=== PATIENT | male | born 1945 | race Caucasian/White ===

== ENCOUNTER 2019-06-04 07:02 | Outpatient (CLI) | payer MEDICARE, SELFPAY ==
--- NOTE | 2019-06-04 07:00 | XR_ITS ---
WS: [id number] KUB, 06/04/2019 Clinical Data: ureteral calculus Comparison: KUB, 11/14/2016. Findings: No abnormal intraabdominal masses or calcifications are seen. There is no dilatated small bowel or ev idence of obstruction. There is a levoscoliosis with degenerative disc disease at L4-L5. No definite renal or ureteral calcu li are seen. XR/XR KUB [id number] Impression: Negative KUB.
== END 2019-06-04 07:03 | disposition home or self-care (01) ==
LOC: RAD 07:06
PROVIDERS: Family Provider Nurse Practitioner Family; PCP Nurse Practitioner Family; Visit Provider Urology
DX: N20.1 Calculus of ureter (principal)
CPT/HCPCS: 74018; 81001

== ENCOUNTER 2019-06-17 08:00 | Outpatient (CLI) | payer MEDICARE, SELFPAY ==
[2019-06-17 08:52] LABS: Blood Urea Nitrogen 11 mg/dL (8-23)
--- NOTE | 2019-06-17 09:30 | CT_ITS ---
WS: [id number] CT ABDOMEN PELVIS TECHNIQUE: Noncontrast CT of the abdomen and contrast-enhanced CT of the abdomen and pelvis with stefan nal and sagittal reformatted images. CLINICAL INFORMATION: HISTORY OF KIDNEY STONES COMPARISON: October 07, 2016 DLP: 1891.[address] scans at [facility] use at least one of these dose optimization techniques: automat ed exposure control; mA and/or kV adjustment per patient size (includes targeted exams where dose is matched to clinical indication); or iterative reconstruction. FINDINGS: Stable hepatic cysts in the left greater than right hepatic lobes the largest measuring 2.2 CM. Lashell l portal vein and splenic vein. Normal spleen. Small splenule. Normal pancreas. Small esophageal hiat al hernia. Lung bases are well aerated. Subsegmental atelectasis right lung base. Adrenal glands are normal. Bilateral renal cysts. Largest renal cyst measures 5.7 x 5.5 cm upper pole right kidney. No o bstructing renal or ureteral calculi. Normal excretion on the delayed images. Both ureters appear nor mal. Tiny nonobstructing left calyceal tip calculus measuring 3 mm. Normal sigmoid colon. Sigmoid diverticulosis. Appendix is normal. Normal caliber abdominal aorta. No abdominal lymphadenopathy. Enlarged calcified prostate. Recommend correlation PSA. No pelvic sidewall or inguinal lymphadenopathy. Multilevel degenerative disc disease throughout the lumbar spine. CT/CT abdomen pelvis wo/w [id number] IMPRESSION: 1. Normal renal parenchymal enhancement. No hydronephrosis. 2. No obstructing renal or ureteral calculi. 3. Nonobstructing 3 mm left calyceal tip calculus. 4. Calcified enlarged prostate measuring 3.7 x 5.3 CM. Recommend correlation P SA. 5. Diverticulosis. No evidence of acute diverticulitis. 6. Bilateral hepatic and renal cysts. Largest renal cyst right upper pole lucita uring 5.5 x 5.7 CM. 7. Moderate esophageal hiatal hernia.
[2019-06-17] MEDS: iohexol 300 mg/mL 100 mL Btl IV (09:43)
--- NOTE | 2019-07-03 14:22 | DCPLANNER ---
Patient did attend appointment scheduled for 07.01.19 with [facility].
== END 2019-06-17 08:01 | disposition home or self-care (01) ==
LOC: RAD 08:04
PROVIDERS: Family Provider Nurse Practitioner Family; Visit Provider Urology
DX: N28.1 Cyst of kidney, acquired (principal); N40.0 Benign prostatic hyperplasia without lower urinary tract symptoms; K57.90 Diverticulosis of intestine, part unspecified, without perforation or abscess without bleeding; K76.89 Other specified diseases of liver; K44.9 Diaphragmatic hernia without obstruction or gangrene; Z87.442 Personal history of urinary calculi
CPT/HCPCS: 74178; 82565; 84520

== ENCOUNTER 2019-06-17 10:48 | Emergency (ER) | payer MEDICARE, SELFPAY ==
[2019-06-17 11:06] VITALS: BP 122/81; PULSE 95; RESP 16; TEMP 36.7; O2SAT 97; BMI 23.6
[2019-06-17 12:33] LABS: Basophils % 0.3 %; Eosinophils # 0.1 10^3/uL (0.0-0.8); Eosinophils % 0.5 %; Hematocrit 47.9 % (42.0-52.0); Hemoglobin 15.5 g/dL (11.7-16.6); Lymphocytes % 8.6 %; Mean Corpuscular HGB Conc 32.4 g/dL (30.0-36.0); Mean Corpuscular Hemoglobin 29.5 pg (28.0-34.0); Mean Corpuscular Volume 91.2 fL (80-94); Mean Platelet Volume 9.4 fL (7.4-10.4); Monocytes # 0.7 10^3/uL (0.2-0.9); Monocytes % 6.3 %; Neutrophils # 9.2 10^3/uL (1.8-7.7); Neutrophils % 82.5 %; Nucleated Red Blood Cells % 0 %; Platelet Count 264 10^3/cmm (130-400); Red Blood Count 5.25 10^6/uL (4.1-5.3); Red Cell Distribution Width 12.9 % (12.1-15.1); White Blood Count 11.1 10^3/uL (4.0-10.0)
[2019-06-17 12:39] LABS: Bilirubin Urine Neg (NEGATIVE); Blood Urine Neg (Negative); Glucose Urine UA Norm (Normal); Ketones Urine Negative (Negative); Leukocyte Esterase Urine Negative (Negative); Nitrate Urine Negative (Negative); Protein Urine Trace (Negative); Urine Appearance Clear (CLEAR); Urine Color Yellow (Yellow); Urobilinogen Urine Norm (Negative); pH Urine 5 (5-7)
[2019-06-17 12:46] LABS: Alanine Aminotransferase 25 U/L (0-41); Albumin Level 3.9 g/dL (3.5-5.2); Alkaline Phosphatase 113 IU/L (40-130); Anion Gap 16.7 (5-19); Aspartate Amino Transferase 23 U/L (0-40); Blood Urea Nitrogen 11 mg/dL (8-23); Calcium 9.8 mg/dL (8.5-10.5); Carbon Dioxide 27 mmol/L (22-29); Chloride 97 mmol/L (98-107); Globulin 3.8 g/dL (1.3-4.6); Glucose 112 mg/dL (65-115); Lipase 20 U/L (13-60); Potassium 4.7 mmol/L (3.5-5.1); Sodium 136 mmol/L (136-145); Total Bilirubin 0.5 mg/dL (0.15-1.2); Total Protein 7.7 g/dL (6.6-8.7)
[2019-06-17 12:50] LABS: Add Urine Culture? No; Bacteria Urine TRACE; RBC Urine 0-4 /hpf (0-2); Squamous Epithelial Cell Urine RARE (0-5); WBC Urine 0-4 /hpf (0-5)
--- NOTE | 2019-06-17 13:32 | ED_ITS ---
HPI - Abdominal Pain General: Chief Complaint: Abdominal Pain Stated Complaint: right side pain Time Seen by Provider: 06/17/19 13:27 Source: patient Mode of arrival: ambulatory Limitations: no limitations History of Present Illness: HPI narrative: Patient comes in today with complaints of right side abdominal pain on and off for the last 4 months. Patient has been seen by Dr. Lamb who is his urologist and has had a CT scan done today but was referred to the ER with no sign of renal problems was noted. Patient is concerned about the difficulty he is having with his pain. Patient denies constipation, fever, nausea or vomiting. Patient appears well. Patient appears in no pain at rest. Review of Systems General: Reports: 10 or more systems reviewed and unremarkable except in HPI and below GI: Reports: abdominal pain PFSH ED PFSH: Social History Smoking and tobacco status: never smoked Alcohol intake: current Alcohol intake frequency: 0-2 Drinks per Day Marital status: Current occupational status: employed History of recent travel: No Current gender identity: Male Physical Exam Const: COMMON NORMALS: no apparent distress and oriented x3 GENERAL APPEARANCE: cooperative HENMT: COMMON NORMALS: normocephalic, external ears normal, EAC's normal, TM's normal bilaterally and external nose normal HEAD & SCALP: normal to inspection and normocephalic FACE & SINUS: normal facial exam NOSE: external nose normal GENERAL EAR: hearing not grossly impaired EXTERNAL EAR: Yes external ears normal EXTERNAL AUDITORY CANAL: EAC's normal TYMPANIC MEMBRANE: TM's normal bilaterally MOUTH: oral and palatal mucosa normal THROAT: posterior oropharynx normal Eye: COMMON NORMALS: PERRL and EOMs intact bilaterally PUPIL: Yes PERRL Neck/C-Spine: COMMON NORMALS: full ROM and no lymphadenopathy Lymph: LYMPHATIC: no lymphedema noted Chest: COMMONS NORMALS: inspection of chest normal and palpation of chest normal Resp: COMMON NORMALS: normal respiratory effort and clear to auscultation bilaterally AUSCULTATION: clear to auscultation bilaterally Cardio: COMMON NORMALS: regular rate and regular rhythm RATE: regular rate RHYTHM: regular rhythm GI: COMMON NORMALS: normal to inspection, nondistended, normoactive bowel sounds PALPATION: Yes tender (right abd tenderness) : COMMON NORMALS: Yes no CVA tenderness BLADDER/KIDNEY EXAM: Yes no CVA tenderness Back/Pelvis: COMMON NORMALS: no CVA tenderness and thoracic and lumbar spine normal to inspection Extremity: COMMON NORMALS: normal to inspection GENERAL: No edema Neuro: COMMON NORMALS: oriented x3, moves all extremities and no focal motor deficits Psych: COMMON NORMALS: mental status grossly normal and cooperative Skin: COMMON NORMALS: no rashes or lesions noted GENERAL SKIN EXAM: no rashes or lesions noted Course Vital Signs: Vital signs: Vital Signs Temperature 97.7 F 06/17/19 14:07 Pulse Rate 79 06/17/19 14:07 Respiratory Rate 16 06/17/19 14:07 Blood Pressure 128/76 06/17/19 14:07 Pulse Oximetry 96 06/17/19 14:07 MDM - Abdominal Pain MDM Narrative: Medical decision making narrative: Patient comes in with persistent right abdominal pain for last 3-4 months. Exam notes a soft abdomen with normal bowel sounds. Patient does have some tenderness in the right abdominal wall. No CVA tenderness. Patient moves all extremities well. No signs of edema in the extremities. Vital signs are normal. Differential diagnosis includes cholecystitis, cholelithiasis, renal calculi, appendicitis, diverticulosis, colitis, enteritis, pancreatitis. Laboratory values noted mild elevation in white blood cells 11.1. CMP was normal without any abnormalities on liver enzymes were lipase. Urinalysis was clear. CT scan noted some diverticulosis, renal cysts, and some calcification of prostate. Reviewed the exam with patient recommendations for follow-up with primary care. Will place a primary care referral into case management as patient no longer has a primary care provider. Patient was agreeable to treatment plan I also reviewed red flags such as high fever and blood in stool or I would recommend follow back up with the emergency department. Patient reports understanding and agreed to plan. Lab Data: Labs: Lab Results 06/17/19 06/17/19 06/17/19 Range/Units 12:16 12:26 12:26 WBC 11.1 H (4.0-10.0) 10^3/ uL RBC 5.25 (4.1-5.3) 10^6/u L Hgb 15.5 (11.7-16.6) g/dL Hct 47.9 (42.0-52.0) % MCV 91.2 (80-94) fL MCH 29.5 (28.0-34.0) pg MCHC 32.4 (30.0-36.0) g/dL RDW 12.9 (12.1-15.1) % Plt Count 264 (130-400) 10^3/c mm MPV 9.4 (7.4-10.4) fL Neut % (Auto) 82.5 % Lymph % (Auto) 8.6 % Stanley % (Auto) 6.3 % Eos % (Auto) 0.5 % Baso % (Auto) 0.3 % Neut # (Auto) 9.2 H (1.8-7.7) 10^3/u L Lymph # (Auto) 1.0 (0.8-4.8) 10^3/u L Stanley # (Auto) 0.7 (0.2-0.9) 10^3/u L Eos # (Auto) 0.1 (0.0-0.8) 10^3/u L Baso # (Auto) 0.0 (0.0-0.1) 10^3/u L Nucleated RBC % (a uto) 0 % Nucleated RBCs # 0.0 /100WBC Sodium 136 (136-145) mmol/L Potassium 4.7 (3.5-5.1) mmol/L Chloride 97 L (98-107) mmol/L Carbon Dioxide 27 (22-29) mmol/L Anion Gap 16.7 (5-19) BUN 11 (8-23) mg/dL Creatinine 1.0 (0.7-1.2) mg/dL Glucose 112 (65-115) mg/dL Calcium 9.8 (8.5-10.5) mg/dL Total Bilirubin 0.5 (0.15-1.2) mg/dL AST 23 (0-40) U/L ALT 25 (0-41) U/L Alkaline Phosphata se 113 (40-130) IU/L Total Protein 7.7 (6.6-8.7) g/dL Albumin 3.9 (3.5-5.2) g/dL Globulin 3.8 (1.3-4.6) g/dL Lipase 20 (13-60) U/L Urine Color Yellow (Yellow) Urine Appearance Clear (CLEAR) Urine pH 5 (5-7) Ur Specific Gravit y 1.000 L (1.005-1.030) Urine Protein Trace (Negative) Urine Glucose (UA) Norm (Normal) Urine Ketones Negative (Negative) Urine Blood Neg (Negative) Urine Nitrate Negative (Negative) Urine Bilirubin Neg (NEGATIVE) Urine Urobilinogen Norm (Negative) mg/dL Ur Leukocyte Summer ase Negative (Negative) Ur Microscopic Ind ic Cancelled Urine RBC 0-4 H (0-2) /hpf Urine WBC 0-4 H (0-5) /hpf Ur Squamous Epith Cells Rare (0-5) Amorphous Sediment Not Reportable Urine Bacteria Trace (NONE) Discharge Plan Discharge Patient Disposition: Home, Self-Care Clinical Impression: Renal cyst, Diverticula of colon Abdominal pain Qualifiers: Abdominal location: right lower quadrant Qualified Code(s): R10.31 - Right lower quadrant pain Condition: Stable Prescriptions: No Action amlodipine-benazepril 10-20 mg capsule 1 cap PO BID RF: 0 esomeprazole magnesium [Nexium] 20 mg capsule,delayed release(DR/EC) 20 mg PO DAILY RF: 0 prednisone 5 mg tablet 5 mg PO DAILY RF: 0 Flomax 0.4 mg capsule 0.4 mg PO BID RF: 0 Discharge Orders: Discharge Order (Routine); Ordered 06/17/19 Ordered By: Harshad Pillai Referrals: Rick Oquendo FNP [Family Provider] - Discharge Diet: Usual diet Discharge Activity: Increase activity as tolerated Patient Instructions: Diverticulosis (ED), Abdominal Pain (ED) Activity Restrictions/Additional Instructions: Activity as tolerated Drink plenty of fluids Avoid foods with seeds when pain is evident Follow-up with primary care Return to ER for high fever or blood in stool Coding Level of Care Code ED Motor Equipment Captain for Chg Fwd Exam Comprehensive
[2019-06-17 14:07] VITALS: BP 128/76; PULSE 79; RESP 16; TEMP 36.5; O2SAT 96
--- NOTE | 2019-06-21 11:24 | DCPLANNER ---
manager casino called [facility] [place], spoke with Beatriz, a follow up appointment was scheduled for Monday, July 01, 2019 at 1:[address] Johnson. manager casino called patient and informed patient of the scheduled appointment.
== END 2019-06-17 14:09 | disposition home or self-care (01) ==
LOC: ER 16:04
PROVIDERS: Emergency Provider Nurse Practitioner Family; Family Provider Nurse Practitioner Family
DX: K57.30 Diverticulosis of large intestine without perforation or abscess without bleeding (principal); N28.1 Cyst of kidney, acquired; R10.31 Right lower quadrant pain; N40.0 Benign prostatic hyperplasia without lower urinary tract symptoms; K57.90 Diverticulosis of intestine, part unspecified, without perforation or abscess without bleeding; K76.89 Other specified diseases of liver; K44.9 Diaphragmatic hernia without obstruction or gangrene; Z87.442 Personal history of urinary calculi
CPT/HCPCS: 36415; 74178; 80053; 81001; 82565; 83690; 84520; 85025; 99282; 99283

== ENCOUNTER → 2020-01-20 08:10 | Outpatient (BNVA) | payer MEDICARE, SELFPAY | PROVIDERS: Family Provider Nurse Practitioner Family; PCP Family Medicine Adult Medicine; Visit Provider Urology | DX: N40.1 Benign prostatic hyperplasia with lower urinary tract symptoms (principal); N52.9 Male erectile dysfunction, unspecified | CPT/HCPCS: 81001 ==

== ENCOUNTER 2020-03-16 15:24 | Outpatient (CLI) | payer MEDICARE, SELFPAY ==
--- NOTE | 2020-03-16 16:00 | MR_ITS ---
WS: [id number] MRI LUMBAR SPINE NONCONTRAST HISTORY: M25.559 - Pain in unspecified hip COMPARISON: 02/22/2016 TECHNIQUE: Sagittal and axial multisequence imaging is submitted. Small disc osteophyte complexes at C5-6 and C6-7 with mild narrowing of the central canal. Mild straightening of the normal lumbar lordosis. There is additional mild LEFT curvature of the mid lumbar vertebral spine. No acute marrow edema or fracture. Disc spaces are mildly narrowed, greatest at the L4-5 level. Endplate osteophytes at all levels. Conus terminates normally at L1-2 disc level. L1-L2: Mild diffuse annular disc bulging with facet and ligamentum flavum disease. Very minimal narro wing of the central canal and mild bilateral foraminal stenosis. L2-L3: Moderate annular disc bulging with facet and ligamentum flavum hypertrophy. Moderate bilateral foraminal stenosis with mild central and subarticular recess narrowing. L3-L4: Diffuse annular disc bulging with a small RIGHT lateral recess disc protrusion. Disc protrusio n is abutting the L4 nerve root. There is additional moderate central, bilateral subarticular recess and foraminal stenosis. Asymmetric RIGHT facet joint hypertrophy. L4-L5: Diffuse annular disc bulging and osteophytic ridging. Ligamentum flavum hypertrophy and facet joint osteophytosis. Thecal sac and central canal are being deformed by the scoliosis and degenerativ e disease. Moderate to severe central with bilateral lateral recess, subarticular recess and foramina l stenosis. Most significant foraminal stenosis on the RIGHT. L5-S1: Diffuse annular disc bulging and osteophytic ridging. Shallow central disc protrusion. Disc pr otrusion contacts but does not displace the S1 nerve roots bilaterally. Severe LEFT foraminal stenosi s with mild RIGHT foraminal stenosis. There is significant encroachment upon the LEFT S1 nerve root. Bilateral renal cysts. MR/MR lumbar spine wo con* [id number] IMPRESSION: 1. Multilevel advanced spondylosis with areas of significant stenosis. Finding s have progressed slightly since 2015. 2. Moderate to severe central, bilateral lateral recess, subarticular recess a nd foraminal stenosis at L4-5, most significant on the RIGHT. 3. Severe LEFT foraminal stenosis at L5-S1. Additional significant encroachmen t upon the LEFT S1 nerve root in the lateral recesses and subarticular foramen. 4. Moderate central, bilateral subarticular recess and foraminal stenosis at L 3-4. 5. Moderate bilateral foraminal stenosis with mild central and subarticular re cess narrowing at L2-3. 6. Degenerative LEFT convex curvature lumbar spine.
== END 2020-03-16 15:25 | disposition home or self-care (01) ==
PROVIDERS: PCP Nurse Practitioner Family; Visit Provider Orthopaedic Surgery
DX: M25.559 Pain in unspecified hip (principal); M48.061 Spinal stenosis, lumbar region without neurogenic claudication; M48.07 Spinal stenosis, lumbosacral region; M47.816 Spondylosis without myelopathy or radiculopathy, lumbar region
CPT/HCPCS: 72148

== ENCOUNTER 2020-04-27 05:53 | Day surgery (SDC) | payer MEDICARE, SELFPAY ==
[2020-04-20 08:56] VITALS: BMI 22.2
--- NOTE | 2020-04-20 09:36 | ANES.PREANE2 ---
Pre-Anesthetic Assessment Pre-Anesthetic Assessment: Height/Weight: Height 1.78 m Weight 70.307 kg Preop Diagnosis: lumbar stenosis Proposed Procedure: Operation Date: 04/27/20 12:20 Proposed Procedures p L3/4 L4/5 L5/S1 Minimally invasive decompression 92503, 08135, 90177 M48.06(Not Applicable) - Shayan Crawford Erlinda, DO Was Beta Jeremias taken within 24 hours: N/A Social: Social History: No alcohol and No tobacco Exam: Pre-Anes Outpt Exam: alert, oriented x 3, clear to auscultation bilaterally and regular rate & rhythm Airway: Submandibular: WNL Cervical ROM: WNL MP: 2 Dentition: Partials Pulmonary: Pulmonary: COPD CV/HEM: CV/HEM: HTN : : None reported Hepatic: Hepatic: None reported GI: GI: None reported Metabolic: Metabolic: None reported Musc/skel: Musc/skel: Lower Back Pain Neuropsych: Neuropsych: None reported Anesthetic Plan: ASA status: 2 Anesthesia: General Risk of > 500 ml blood loss (7ml/kg in children): No PFSH Anesthesia PFSH: Medical History Abdominal pain BPH loc w urin obs/LUTS Elevated PSA Erectile dysfunction Progressive, worsening, failed overdosing Viagra, vacuum device. Self injection training conducted June 2019 History of kidney stones Ureteral calculus Surgical History H/O vasectomy Family History Father , at age 47 Hodgkins disease Mother , at age 53 Leukemia Social History Smoking and tobacco status: never smoked Alcohol intake: current Alcohol intake frequency: 0-2 Drinks per Day Marital status: Current occupational status: employed History of recent travel: No Current gender identity: Male Data Anesthesia Cardiac Studies: No Data to Display
[2020-04-27] VITALS (7 sets, daily range): BP systolic 125–165; BP diastolic 71–105; PULSE 71–102; RESP 12–20; TEMP 36.1–36.4; O2SAT 94–97
--- NOTE | 2020-04-27 | SCC_ITS ---
Procedure Done: 1. L3/4 Laminectomy with partial facetectomy bilateral 2. L4/5 Laminectomy with partial facetectomy bilateral 3. L5/S1 Laminectomy with partial facetectomy bilateral 29.7 seconds of fluoroscopic guidance, for a cumulative dose of 9.19 mGy, was provided to Dr. Coffey by the radiology department. C-arm images of the lumbar spine were saved for the patient's permanent record. [facility]
--- NOTE | 2020-04-27 | XR_ITS ---
WS: [id number] C-ARM RADIOGRAPHS LUMBAR SPINE; 6 IMAGES HISTORY: L3/L4; L4/L4; L5/S1; DECOMPRESSION COMPARISON: 03/16/2020 Intraoperative imaging during spine decompression. Hardware is noted overlying several levels of the lumbar spine. XR/XR lumbar spine 2-3V* [id number] IMPRESSION: Intraoperative imaging during spine decompression.
[2020-04-27] MEDS: sodium chloride 0.9% 1,000 ML 30 ML IV (06:28)
--- NOTE | 2020-04-27 06:39 | W.PM.OPSUD ---
Surgery/Procedure H&P Update DATE OF PROCEDURE: April 27, 2020 DATE H&P PERFORMED: 04/02/20 H&P UPDATE INFORMATION: I have reviewed H&P completed within last 30 days, I have examined patient prior to procedure and No changes to prior documentation PREOP DIAGNOSIS: lumbar stenosis PLANNED PROCEDURE: Operation Date: 04/27/20 07:15 Proposed Procedures p L3/4 L4/5 L5/S1 Minimally invasive decompression 38628, 31987, 05164 M48.06(Not Applicable) - Shayan Coffey DO
[2020-04-27] MEDS: clindamycin 900 MG/50 ML PREMIX 100 MG IV (06:58)
--- NOTE | 2020-04-27 06:59 | P.ANESUD_ITS ---
Pre-Anesthetic Update Pre-Anesthetic Assessment: Date of Surgery/Procedure: 04/27/20 Preop Salud gnosis: lumbar stenosis Proposed Procedure: Operation Date: 04/27/20 07:15 Proposed Procedures p L3/4 L4/5 L5/S1 Minimally invasive decompression 35562, 94482, 07816 M48.06(Not Applicable) - Shayan Coffey, DO Any changes to Pre-Anesthetic Assessment?: No Last Intake: Intake Last Liquid Date 04/26/20 Last Liquid Time 19:00 Last Solid Date 04/26/20 Last Solid Time 19:00 Vitals: Temperature 97.5 F L 04/27/20 06:04 Temperature Source Temporal Artery S can 04/27/20 06:04 Pulse Rate 71 04/27/20 06:04 Pulse Rhythm 04/27/20 06:04 Pulse Strength 3+ Normal 04/27/20 06:04 Respiratory Rate 18 04/27/20 06:04 Blood Pressure 165/105 04/27/20 06:04 Blood Pressure Audelia n 125 04/27/20 06:04 Pulse Oximetry 97 04/27/20 06:04 Oxygen Delivery Me thod 04/27/20 06:04 Exam: Pre-Anes Outpt Exam: alert, oriented x 3, clear to auscultation bilaterally and regular rate & rhythm Cardiac Studies: No Data to Display
--- NOTE | 2020-04-27 07:42 | SUR.OPER ---
Family Notified Of Patient's Status Via Phone.
--- NOTE | 2020-04-27 08:59 | P.OP_ITS ---
Operative Report Date of procedure: April 27, 2020 Pre-op Diagnosis: lumbar stenosis Post-op diagnosis: same Procedure Done: 1. L3/4 Laminectomy with partial facetectomy bilateral 2. L4/5 Laminectomy with partial facetectomy bilateral 3. L5/S1 Laminectomy with partial facetectomy bilateral Surgeon: Shayan Coffey Anesthesia: General Estimated blood loss (mL): 20 Condition: stable Disposition: PACU Procedure: 1. L3/4 Laminectomy with partial facetectomy bilateral 2. L4/5 Laminectomy with partial facetectomy bilateral 3. L5/S1 Laminectomy with partial facetectomy bilateral Patient was brought to the operating room after undergoing anesthesia was placed in prone position all areas impingement well-padded patient's prepped and draped normal sterile fashion. Skin incision made over the L4-5 level. This confirmed numbers under C-arm guidance. Dilators were passed to retractor was docked onto the L4 lamina. Laminectomy was performed bilaterally with a high-speed bur. This was accomplished by tilting table. Bilateral partial facetectomies were al so performed. Using high-speed bur. Kerrison rongeur was then used to take down the remaining lamina and the medial aspect of facet joints bilaterally. The ligament flavum was thickened and calcified taken down from L4-L5 bilaterally. Lateral recesses were opened up bilaterally with the Kerrison rongeur. Large curette was then used to confirm that the L4 and L5 nerve roots were completely freed up. The dura was in good repair. Wound was irrigated and then Surgicel was injected to decrease bleeding. Next 10 was brought to the L5- S1 level. Dilators were passed to the same incision tubular tract was docked onto the L5 lamina laminectomies performed bilaterally using high-speed bur and Kerrison rongeurs. The medial aspect of facet joints was taken down medially with the Kerrison rongeur. Once the Kerrison rongeur was used for the medial aspect of facet joint the ligament flavum again was thickened and calcified taken down from L5 and S1. Bilaterally. The large curette was then used to confirm the S1 and L5 nerve was completely freed up. Wounds irrigated and Surgicel was again injected and then attention was brought to the L3-4 level that is passed tubular tract was inserted and docked onto the L3 lamina laminectomies performed bilaterally and this was done with a high-speed bur. The medial aspect facet joints were taken down. A high-speed bur and Kerrison rongeur were used bilaterally. Ligament flavum again was taken down from L3-L4 bilaterally. In the large curette was used to confirm that the L3 and L4 nerves were complete decompressed. Wounds were irrigated Surgicel was injected and skin was closed with 2-0 Vicryl and Monocryl suture and glue. Patient was stabilized and transferred the PACU in stable condition.
--- NOTE | 2020-04-27 18:39 | ANE.PACU2 ---
Inpatient post-anesthesia follow up: Airway intact: Yes Vital signs: Temperature 97.6 F Pulse Rate 88 Respiratory Rate 18 Blood Pressure 125/84 Pulse Oximetry 96 Oxygen Delivery Me thod Room Air Oxygen Flow Rate Fraction of Inspir ed Oxygen Hydration adequate: Yes Nausea and vomiting: No Pain level: 1 Mental status: Baseline
== END 2020-04-27 10:20 | disposition home or self-care (01) ==
PROVIDERS: PCP Nurse Practitioner Family; Visit Provider Orthopaedic Surgery
PROC: (CPT 63005; principal; 2020-04-27 07:00)
DX: M48.061 Spinal stenosis, lumbar region without neurogenic claudication (principal); J44.9 Chronic obstructive pulmonary disease, unspecified; I10 Essential (primary) hypertension; N40.1 Benign prostatic hyperplasia with lower urinary tract symptoms; N13.8 Other obstructive and reflux uropathy
CPT/HCPCS: 63047; 63048; 12345; 51702; 72100; 76000; 96365; J1100; J2370; J2405; J2704; J3010; J3490; J7030

== ENCOUNTER 2020-10-05 10:50 | Emergency (ER) | payer MEDICARE, SELFPAY ==
[2020-10-05] VITALS (8 sets, daily range): BP systolic 128–138; BP diastolic 75–81; PULSE 62–80; RESP 13–21; TEMP 36.9; O2SAT 94–100; BMI 21.1
--- NOTE | 2020-10-05 11:30 | XR_ITS ---
WS: [id number] Exam: XR chest 1V portable [id number] Date/Time of Exam: 10/05/2020 11:35 AM Reason For Exam: cp Comparison 03/02/2009. The lungs are clear and fully inflated. Normal cardiomediastinal structures and regional bony element s. Calcified granulomas noted bilaterally. XR/XR chest 1V portable [id number] IMPRESSION: 1. No acute cardiopulmonary finding.
--- NOTE | 2020-10-05 11:32 | ED_ITS ---
HPI - Chest Pain General: Chief Complaint: Chest Pain Stated Complaint: chest pains, SOB, feels like heart skipping a beat Time Seen by Provider: 10/05/20 11:25 History of Present Illness: HPI narrative: The patient is a 74-year-old male with past medical history hypertension and COPD who complains in April he got Covid and has felt quite fatigued since. Over the past couple months he started having left-sided chest pressure with exertion. He feels weak and tired and fatigued. He also complains of nausea today. He says this morning he was making coffee and felt a left-sided chest pressure and when he went to sit down it resolved. He is not having chest pain or pressure in the ER. He has not seen a health administration teacher in the past and has no cardiac history that he knows of. He says he is allergic to aspirin 20 or more years ago he had facial swelling rash and shortness of breath with administration was told not to take it ever again. He took an ibuprofen this morning to help with his symptoms. MD complaint: other (chest pressure) Timing of current episode: episodic and daily Onset: during exertion Pain location: left chest Pain radiation: none Severity: moderate Quality: other (pressure) Exacerbating factors: exertion Associated symptoms: Reports nausea; Deny dyspnea or palpitations Review of Systems General: Reports: 10 or more systems reviewed and unremarkable except in HPI and below Const: Reports: fatigue Eyes: Denies: change in vision, blurry vision or eye redness ENMT: Denies: throat pain, swelling of lips/tongue, ear or mastoid pain or nasal congestion Card: Denies: chest pain, palpitations, irregular heart rhythm, edema, dyspnea on exertion or orthopnea Resp: Denies: dyspnea, productive cough or non-productive cough GI: Reports: nausea : Denies: flank pain, urinary frequency or urinary urgency Musc: Denies: neck pain, back pain, extremity pain, joint pain, joint redness, limited range of motion or muscle weakness Skin/Breast: Denies: rash, pruritus, erythema, skin pain or skin tenderness Neuro: Denies: headache(s), numbness in extremities, weakness in extremities, sensory changes, difficulty walking, dizziness, confusion or Slurred speech present Psych: Denies: anxiety or depression Endo: Denies: polyuria All/Imm: Denies: urticaria, throat swelling or tongue swelling PFSH ED PFSH: Medical History (Updated 10/05/20 @ 17:25 by Juan Carrillo MD) Abdominal pain BPH loc w urin obs/LUTS Elevated PSA Erectile dysfunction Progressive, worsening, failed overdosing Viagra, vacuum device. Self injection training conducted June 2019 History of kidney stones Ureteral calculus Surgical History H/O vasectomy Family History Father , at age 47 Hodgkins disease Mother , at age 53 Leukemia Social History Smoking and tobacco status: never smoked Alcohol intake: current Alcohol intake frequency: 0-2 Drinks per Day Marital status: Current occupational status: employed History of recent travel: No Current gender identity: Male Physical Exam 2 Const: COMMON NORMALS: no acute distress, average body habitus, patient oriented x3, no limitations, healthy appearing, alert and well nourished GENERAL APPEARANCE: cooperative, comfortable, well kempt and well developed ORIENTATION/CONSCIOUSNESS: Yes awake, Yes oriented to person, Yes oriented to place and Yes oriented to time HENMT: COMMON NORMALS: normocephalic, external ears normal and Normal external nose present HEAD & SCALP: normal to inspection and normocephalic NOSE: Normal external nose present EXTERNAL EAR: Yes external ears normal MOUTH: Normal oral and palatal mucosa present THROAT: posterior oropharynx normal Eye: COMMON NORMALS: Equal, round and reactive pupils present and EOMs intact bilaterally GENERAL EYE: appearance normal, both eyes and all related structures PUPIL: Yes Equal, round and reactive pupils present Neck/C-Spine: COMMON NORMALS: full ROM, no lymphadenopathy, no meningeal signs and no JVD GENERAL: Yes normal visual inspection Lymph: LYMPHATIC: no lymphadenopathy noted Chest: COMMONS NORMALS: normal inspection of the chest and normal palpation of entire chest wall Resp: COMMON NORMALS: normal respiratory effort, No retractions, No use of accessory muscles, clear to auscultation bilaterally and percussion normal EFFORT & INSPECTION: Yes able to speak in complete sentences AUSCULTATION: clear to auscultation bilaterally PERCUSSION: percussion normal Cardio: COMMON NORMALS: no JVD, regular rate, regular rhythm, S1 normal heart sound present, S2 normal heart sound present and Peripheral pulses 2+ throughout RATE: regular rate RHYTHM: regular rhythm HEART SOUNDS: S1 normal heart sound present and S2 normal heart sound present PERIPHERAL PULSES: Peripheral pulses 2+ throughout GI: COMMON NORMALS: Normal to inspection, nondistended, normoactive bowel sounds present, Soft to palpation, non-tender and no masses INSPECTION: Yes normal to inspection PALPATION: Yes Soft to palpation : COMMON NORMALS: Yes no CVA tenderness BLADDER/KIDNEY EXAM: Yes no CVA tenderness Back/Pelvis: COMMON NORMALS: no CVA tenderness, thoracic and lumbar spine normal to inspection, no thoracic nor lumbar tenderness and thoraco-lumbar ROM normal Extremity: COMMON NORMALS: normal to inspection, full ROM, capillary refill normal, no joint enlargement and no pedal edema GENERAL: Yes normal exam except as noted Neuro: COMMON NORMALS: patient oriented x3, CN's II-XII intact bilaterally, m oves all extremities, no focal motor deficits, no sensory deficits noted and gait normal SENSORIUM/ORIENTATION: Yes alert, Yes oriented to person, Yes oriented to place and Yes oriented to time MENINGEAL SIGNS: Yes no meningeal signs Psych: COMMON NORMALS: mental status grossly normal, Normal thought process present, cooperative, normal affect and speech normal APPEARANCE: Yes well kempt ATTITUDE: Yes calm SPEECH: Yes normal speech THOUGHT PROCESS: Normal thought process present Skin: COMMON NORMALS: no rashes or lesions noted GENERAL SKIN EXAM: no rashes or lesions noted Course Vital Signs: Vital signs: Vital Signs Temperature 98.4 F 10/05/20 11:04 Pulse Rate 71 10/05/20 17:10 Respiratory Rate 17 10/05/20 17:00 Blood Pressure 138/81 10/05/20 17:00 Pulse Oximetry 95 10/05/20 17:00 MDM - Chest Pain MDM Narrative: Medical decision making narrative: The patient came in complaining of left-sided chest pain with any exertion such as getting coffee this morning constant.left-sided chest pain. On arrival he was in multiple rhythms bigeminy, trigeminy, multiple PVCs. After he rested in bed they spaced out and he had occasional PVCs. With any movement he developed more PVCs. He is allergic to aspirin and was not given any. I discussed with Dr. Zuniga who recommended keeping him observation and possibly a stress in the morning. I discussed with Dr. Frias who accepted care and went down to see him. He demanded to sign out AGAINST MEDICAL ADVICE saying he has to work. I discussed with him that he has chest pain which is significant and he could from a heart attack. He understands and accepts the risks of worsening condition and even and signed AGAINST MEDICAL ADVICE and walked out on his own. Lab Data: Labs: Lab Results 10/05/20 10/05/20 10/05/20 Range/Units 11:52 11:52 11:52 WBC 7.6 (4.0-10.0) 10^3/ uL RBC 4.90 (4.1-5.3) 10^6/u L Hgb 14.3 (11.7-16.6) g/dL Hct 44.1 (42.0-52.0) % MCV 90.0 (80-94) fL MCH 29.2 (28.0-34.0) pg MCHC 32.4 (30.0-36.0) g/dL RDW 13.2 (12.1-15.1) % Plt Count 222 (130-400) 10^3/c mm MPV 10.5 H (7.4-10.4) fL Neut % (Auto) 70.3 % Lymph % (Auto) 14.0 % [place] % (Auto) 8.4 % Eos % (Auto) 6.2 % Baso % (Auto) 1.0 % Neut # (Auto) 5.36 (1.8-7.7) 10^3/u L Lymph # (Auto) 1.1 (0.8-4.8) 10^3/u L [place] # (Auto) 0.6 (0.2-0.9) 10^3/u L Eos # (Auto) 0.5 (0.0-0.8) 10^3/u L Baso # (Auto) 0.1 (0.0-0.1) 10^3/u L Nucleated RBC % (a uto) 0 % Nucleated RBCs # 0.0 /100WBC D-Dimer (0-0.59) ug/mIFE U Sodium 139 (136-145) mmol/L Potassium 4.1 (3.5-5.1) mmol/L Chloride 102 (98-107) mmol/L Carbon Dioxide 25 (22-29) mmol/L Anion Gap 16.1 (5-19) BUN 9 (8-23) mg/dL Creatinine 0.7 (0.7-1.2) mg/dL GFR Calculation Not Reportable Glucose 99 (65-115) mg/dL Calculated Osmolal ity 287 (285-295) mOsm/k g Lactate 1.0 (0.5-2.2) mmol/L Calcium 9.1 (8.5-10.5) mg/dL Magnesium (1.7-2.3) mg/dL Total Bilirubin 0.4 (0.15-1.2) mg/dL AST 17 (0-40) U/L ALT 10 (0-41) U/L Alkaline Phosphata se 114 (40-130) IU/L Troponin T Baselin e (0-15) ng/L Troponin T 120 Min collins (0-15) ng/L Delta Troponin T (0-10) ABS# NT-Pro-B Natriuret Pep 232 H (0-125) pg/mL Total Protein 6.9 (6.6-8.7) g/dL Albumin 4.5 (3.5-5.2) g/dL Globulin 2.4 (1.3-4.6) g/dL Urine Color (Yellow) Urine Appearance (CLEAR) Urine pH (5-7) Ur Specific Gravit y (1.005-1.030) Urine Protein (Negative) Urine Glucose (UA) (Normal) Urine Ketones (Negative) Urine Blood (Negative) Urine Nitrate (Negative) Urine Bilirubin (Negative) Urine Urobilinogen (Negative) mg/dL Ur Leukocyte Summer ase (Negative) 10/05/20 10/05/20 10/05/20 Range/Units 11:52 11:52 12:10 WBC (4.0-10.0) 10^3/ uL RBC (4.1-5.3) 10^6/u L Hgb (11.7-16.6) g/dL Hct (42.0-52.0) % MCV (80-94) fL MCH (28.0-34.0) pg MCHC (30.0-36.0) g/dL RDW (12.1-15.1) % Plt Count (130-400) 10^3/c mm MPV (7.4-10.4) fL Neut % (Auto) % Lymph % (Auto) % [place] % (Auto) % Eos % (Auto) % Baso % (Auto) % Neut # (Auto) (1.8-7.7) 10^3/u L Lymph # (Auto) (0.8-4.8) 10^3/u L [place] # (Auto) (0.2-0.9) 10^3/u L Eos # (Auto) (0.0-0.8) 10^3/u L Baso # (Auto) (0.0-0.1) 10^3/u L Nucleated RBC % (a uto) % Nucleated RBCs # /100WBC D-Dimer (0-0.59) ug/mIFE U Sodium (136-145) mmol/L Potassium (3.5-5.1) mmol/L Chloride (98-107) mmol/L Carbon Dioxide (22-29) mmol/L Anion Gap (5-19) BUN (8-23) mg/dL Creatinine (0.7-1.2) mg/dL GFR Calculation Glucose (65-115) mg/dL Calculated Osmolal ity (285-295) mOsm/k g Lactate (0.5-2.2) mmol/L Calcium (8.5-10.5) mg/dL Magnesium 2.0 (1.7-2.3) mg/dL Total Bilirubin (0.15-1.2) mg/dL AST (0-40) U/L ALT (0-41) U/L Alkaline Phosphata se (40-130) IU/L Troponin T Baselin e 15 (0-15) ng/L Troponin T 120 Min collins (0-15) ng/L Delta Troponin T (0-10) ABS# NT-Pro-B Natriuret Pep (0-125) pg/mL Total Protein (6.6-8.7) g/dL Albumin (3.5-5.2) g/dL Globulin (1.3-4.6) g/dL Urine Color Yellow (Yellow) Urine Appearance Clear (CLEAR) Urine pH 5 (5-7) Ur Specific Gravit y 1.015 (1.005-1.030) Urine Protein Neg (Negative) Urine Glucose (UA) Norm (Normal) Urine Ketones Negative (Negative) Urine Blood Neg (Negative) Urine Nitrate Negative (Negative) Urine Bilirubin Neg (Negative) Urine Urobilinogen Norm (Negative) mg/dL Ur Leukocyte Summer ase Negative (Negative) 10/05/20 10/05/20 Range/Units 12:42 13:52 WBC (4.0-10.0) 10^3/ uL RBC (4.1-5.3) 10^6/u L Hgb (11.7-16.6) g/dL Hct (42.0-52.0) % MCV (80-94) fL MCH (28.0-34.0) pg MCHC (30.0-36.0) g/dL RDW (12.1-15.1) % Plt Count (130-400) 10^3/c mm MPV (7.4-10.4) fL Neut % (Auto) % Lymph % (Auto) % [place] % (Auto) % Eos % (Auto) % Baso % (Auto) % Neut # (Auto) (1.8-7.7) 10^3/u L Lymph # (Auto) (0.8-4.8) 10^3/u L [place] # (Auto) (0.2-0.9) 10^3/u L Eos # (Auto) (0.0-0.8) 10^3/u L Baso # (Auto) (0.0-0.1) 10^3/u L Nucleated RBC % (a uto) % Nucleated RBCs # /100WBC D-Dimer 0.45 (0-0.59) ug/mIFE U Sodium (136-145) mmol/L Potassium (3.5-5.1) mmol/L Chloride (98-107) mmol/L Carbon Dioxide (22-29) mmol/L Anion Gap (5-19) BUN (8-23) mg/dL Creatinine (0.7-1.2) mg/dL GFR Calculation Glucose (65-115) mg/dL Calculated Osmolal ity (285-295) mOsm/k g Lactate (0.5-2.2) mmol/L Calcium (8.5-10.5) mg/dL Magnesium (1.7-2.3) mg/dL Total Bilirubin (0.15-1.2) mg/dL AST (0-40) U/L ALT (0-41) U/L Alkaline Phosphata se (40-130) IU/L Troponin T Baselin e (0-15) ng/L Troponin T 120 Min collins 13.46 (0-15) ng/L Delta Troponin T -1.54 L (0-10) ABS# NT-Pro-B Natriuret Pep (0-125) pg/mL Total Protein (6.6-8.7) g/dL Albumin (3.5-5.2) g/dL Globulin (1.3-4.6) g/dL Urine Color (Yellow) Urine Appearance (CLEAR) Urine pH (5-7) Ur Specific Gravit y (1.005-1.030) Urine Protein (Negative) Urine Glucose (UA) (Normal) Urine Ketones (Negative) Urine Blood (Negative) Urine Nitrate (Negative) Urine Bilirubin (Negative) Urine Urobilinogen (Negative) mg/dL Ur Leukocyte Summer ase (Negative) Discharge Plan Discharge Patient Disposition: Left Against Medical Advice Clinical Impression: Chest pain, Irregular heart rhythm Condition: Stable Prescriptions: No Action amlodipine-benazepril 5-20 mg capsule 1 cap PO BID 90 Days Qty: 180 RF: 0 naproxen 500 mg tablet 500 mg PO BID PRN (Reason: pain) 90 Days Qty: 180 RF: 0 albuterol sulfate 90 mcg/actuation HFA aerosol inhaler 1 inh INHALATION QID PRN (Reason: shortness of breath or wheezing) Qty: 18 RF: 0 multivitamin Tablet 1 tab PO DAILY RF: 0 bile erghe-iwbp-tooz-phenolpth Tablet 1 tab PO DAILY RF: 0 Nexium 20 mg Capsule,Delayed Release(Dr/Ec) 20 mg PO DAILY RF: 0 Vitamin B-12 25 mcg Tablet 50 mcg PO DAILY RF: 0 hydrocodone-acetaminophen 5-325 mg tablet 1 - 2 tab PO Q4H PRN (Reason: Pain) RF: 0 tamsulosin 0.4 mg capsule 0.4 mg PO BID RF: 0 Breo Ellipta 200-25 mcg/dose blister with device 1 inh INHALATION DAILY RF: 0 Referrals: Zoraida Monterroso FNP [Primary Care Provider] - Coding Level of Care Code ED Riveter Pneumatic for Chg Fwd Exam Comprehensive
--- NOTE | 2020-10-05 11:32 | ECG_ITS ---
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 Measurements Intervals [place] Rate: 73 P: 75 OR: 154 QRS: 69 QRSD: 98 T: 80 QT: 402 QTc: 444 Interpretive Statements SINUS RHYTHM WITH OCCASIONAL VENTRICULAR PREMATURE COMPLEXES Compared to ECG 10/12/2017 16:57:02 Ventricular premature complex(es) now present Electronically Signed On 10-05-2020 22:49:44 CDT by Malini Russell M.D. [id number] f
[2020-10-05 11:59] LABS: Basophils # 0.1 10^3/uL (0.0-0.1); Eosinophils # 0.5 10^3/uL (0.0-0.8); Eosinophils % 6.2 %; Hematocrit 44.1 % (42.0-52.0); Hemoglobin 14.3 g/dL (11.7-16.6); Lymphocytes # 1.1 10^3/uL (0.8-4.8); Mean Corpuscular HGB Conc 32.4 g/dL (30.0-36.0); Mean Corpuscular Hemoglobin 29.2 pg (28.0-34.0); Mean Platelet Volume 10.5 fL (7.4-10.4); Monocytes # 0.6 10^3/uL (0.2-0.9); Monocytes % 8.4 %; Neutrophils # 5.36 10^3/uL (1.8-7.7); Neutrophils % 70.3 %; Nucleated Red Blood Cells % 0 %; Platelet Count 222 10^3/cmm (130-400); Red Cell Distribution Width 13.2 % (12.1-15.1); White Blood Count 7.6 10^3/uL (4.0-10.0)
[2020-10-05 12:22] LABS: Troponin(5th) Baseline 15 ng/L (0-15)
[2020-10-05 12:27] LABS: Add Urine Microscopic? NO; Charge for UA Resulting for Rev
[2020-10-05 12:31] LABS: Alanine Aminotransferase 10 U/L (0-41); Albumin Level 4.5 g/dL (3.5-5.2); Alkaline Phosphatase 114 IU/L (40-130); Anion Gap 16.1 (5-19); Aspartate Amino Transferase 17 U/L (0-40); Blood Urea Nitrogen 9 mg/dL (8-23); Calcium 9.1 mg/dL (8.5-10.5); Carbon Dioxide 25 mmol/L (22-29); Chloride 102 mmol/L (98-107); Globulin 2.4 g/dL (1.3-4.6); Glucose 99 mg/dL (65-115); NT Pro B Type Natriuretic Pept 232 pg/mL (0-125); Osmolality Calculated 287 mOsm/kg (285-295); Potassium 4.1 mmol/L (3.5-5.1); Sodium 139 mmol/L (136-145); Total Bilirubin 0.4 mg/dL (0.15-1.2); Total Protein 6.9 g/dL (6.6-8.7)
[2020-10-05 12:37] LABS: Bilirubin Urine Neg (Negative); Blood Urine Neg (Negative); Glucose Urine UA Norm (Normal); Ketones Urine Negative (Negative); Leukocyte Esterase Urine Negative (Negative); Nitrate Urine Negative (Negative); Protein Urine Neg (Negative); Specific Gravity, Urine 1.015 (1.005-1.030); Urine Appearance Clear (CLEAR); Urine Color Yellow (Yellow); Urobilinogen Urine Norm (Negative); pH Urine 5 (5-7)
[2020-10-05] MEDS: ondansetron 2 mg/ML SDV 2 mL 4 MG IVP (12:44)
[2020-10-05 13:01] LABS: D Dimer 0.45 ug/mIFEU (0-0.59)
--- NOTE | 2020-10-05 13:32 | ECG_ITS ---
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 Measurements Intervals [place] Rate: 61 P: 76 [place]: 161 QRS: 32 QRSD: 104 T: 57 QT: 411 QTc: 414 Interpretive Statements SINUS RHYTHM Compared to ECG 10/05/2020 11:32:53 Ventricular premature complex(es) no longer present Electronically Signed On 10-05-2020 22:57:17 CDT by Malini Russell M.D. [email or web address]/[id number]
[2020-10-05 14:48] LABS: Troponin 5 2HR 13.46 ng/L (0-15); Troponin 5 2HR Delta -1.54 ABS# (0-10)
--- NOTE | 2020-10-05 16:58 | PC.NURSE ---
Attempted to call report to the floor and was unable to give it until the room is clean
--- NOTE | 2020-10-05 17:32 | ECG_ITS ---
[facility] Test Date: 2020-10-05 Pat Name: Don Clay Department: Room: 253 Gender: Male Swager Operator: : 1945 Requested By: Juan Carrillo Order Number: [id number] Janine MD: Malini Russell M.D. Measurements Intervals [place] Rate: 71 P: 73 [place]: 158 QRS: 50 QRSD: 104 T: 68 QT: 388 QTc: 424 Interpretive Statements SINUS RHYTHM Compared to ECG 10/05/2020 14:12:42 No significant changes Electronically Signed On 10-05-2020 22:55:16 CDT by Malini Russell M.D. [id number]
--- NOTE | 2020-10-06 10:09 | DCPLANNER ---
science manager had message to schedule a follow up appointment for patient with [facility]. science manager called the [facility], spoke with Malinda, gave clinic patients information. A follow up appointment was scheduled for October 21, at 9:[address] Russell, when e commerce project manager called and gave patient the appointment information, patient requested that e commerce project manager reschedule the appointment with Dr. Painter. science manager called [facility], spoke with Blanca, cancelled the appointment that was made and scheduled a follow up appointment for , November 05, 2020 at 2;[address] Painter. science manager called patient and gave patient the appointment information.
--- NOTE | 2020-12-11 12:19 | DCPLANNER ---
Patient had a follow up appointment scheduled for 11.05.20 with [facility] - patient did attend appointment.
== END 2020-10-05 17:26 | disposition left against medical advice (07) ==
LOC: ER 13:32 → MEDSURG 16:40 → ER 17:25
PROVIDERS: Emergency Provider Family Medicine; PCP Nurse Practitioner Family
DX: R07.9 Chest pain, unspecified (principal); R00.2 Palpitations; Z53.21 Procedure and treatment not carried out due to patient leaving prior to being seen by health care provider
CPT/HCPCS: 36415; 71045; 80053; 81003; 83605; 83735; 83880; 84484; 85025; 85378; 93005; 96374; 99284; J2405

== ENCOUNTER 2020-10-18 15:11 | Emergency (ER) | payer MEDICARE, SELFPAY ==
[2020-10-18 15:19] VITALS: BP 137/86; PULSE 70; RESP 16; TEMP 36.6; O2SAT 97; BMI 20.7
--- NOTE | 2020-10-18 15:26 | ECG_ITS ---
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 Measurements Intervals [place] Rate: 67 P: 62 [place]: 159 QRS: 23 QRSD: 102 T: 51 QT: 392 QTc: 416 Interpretive Statements SINUS RHYTHM Compared to ECG 10/05/2020 16:52:02 No significant changes Electronically Signed On 10-19-2020 21:05:43 CDT by Omar Denny M.D. [id number] f
--- NOTE | 2020-10-18 15:27 | XRR_ITS ---
PROCEDURE INFORMATION: Exam: XR Chest Exam date and time: 10/18/2020 3:27 PM Age: 75 years old Clinical indication: Pain; On breathing; Additional info: Chest pain TECHNIQUE: Imaging protocol: XR of the chest. Views: 1 view. Total images: 1 COMPARISON: CR XR chest 1V portable [id number] 10/05/2020 11:30 AM FINDINGS: Lungs: No visible active interstitial or alveolar airspace disease. COPD/chronic bronchitis. Mild senile fibrosis. Pleural spaces: Unremarkable. No pleural effusion. No pneumothorax. Heart/Mediastinum: Cardiac structures and configuration with arteriosclerosis. Bones/joints: Unremarkable for age. XR/XR chest 1V portable [id number] IMPRESSION: Nonacute.
--- NOTE | 2020-10-18 15:31 | ED_ITS ---
Documented by User: Domenico Rivera MD 10/18/20 17:58 HPI - Chest Pain General: Chief Complaint: Chest Pain Stated Complaint: DIFF BREATHING/DUE FOR STRESS TEST 10.21.20 Time Seen by Provider: 10/18/20 15:26 History of Present Illness: HPI narrative: This patient is a 75-year-old male who presents to the emergency department complaint chest pain and shortness of breath. Patient states has been intermittent for about a week. Patient was seen a week ago and had a cardiac evaluation in the emergency department is negative for any acute findings we will set up to have a stress test this coming Monday. In 3 days. Patient states started having some chest pain again intermittent this morning and states has been him his albuterol every 30 minutes states he just cannot feel like he takes a deep breath. Will do medical gabriel luation treat as needed complaint: chest heaviness Pertinent past history: coronary artery disease and asthma Timing of current episode: episodic Pain location: substernal and left chest Pain radiation: none Severity: moderate Associated symptoms: Reports dyspnea; Deny abdominal pain, fever(s), nausea, palpitations or vomiting Review of Systems General: Reports: 10 or more systems reviewed and unremarkable except in HPI and below Const: Denies: fever(s), chills, body aches or fatigue Eyes: Denies: change in vision or blurry vision ENMT: Denies: throat pain, hoarseness or mouth pain Card: Reports: chest pain; Denies: palpitations, irregular heart rhythm, edema, swelling of feet/ankles or lightheadedness Resp: Reports: dyspnea; Denies: productive cough, non-productive cough, wheezing or pain on inspiration GI: Denies: abdominal pain, nausea or vomiting : Denies: flank pain, dysuria, urinary frequency, urinary urgency or urinary hesitancy Musc: Denies: neck pain, back pain, extremity pain, extremity swelling, joint pain, joint swelling, joint redness, joint warmth or limited range of motion Skin/Breast: Denies: rash, pruritus, erythema or skin tenderness Neuro: Denies: headache(s), numbness in extremities or weakness in extremities Psych: Denies: anxiety or depression PFS ED PFSH: Medical History (Updated 10/18/20 @ 19:37 by Vicente Dickey DO) Abdominal pain BPH loc w urin obs/LUTS Elevated PSA Erectile dysfunction Progressive, worsening, failed overdosing Viagra, vacuum device. Self injection training conducted June 2019 History of kidney stones Ureteral calculus Surgical History H/O vasectomy Family History Father , at age 47 Hodgkins disease Mother , at age 53 Leukemia Social History Smoking and tobacco status: never smoked Alcohol intake: current Alcohol intake frequency: 0-2 Drinks per Day Marital status: Current occupational status: employed History of recent travel: No Current gender identity: Male Physical Exam Const: COMMON NORMALS: no acute distress, average body habitus, patient oriented x3, no limitations, healthy appearing, alert and well nourished HENMT: COMMON NORMALS: normocephalic, atraumatic, hearing grossly normal bilaterally, external ears normal, EAC's normal, TM's normal bilaterally, Normal external nose present, Normal nasal mucous membranes and turbinates present, moist oral mucous membranes, oropharynx normal, dentition normal and gingiva normal HEAD & SCALP: normocephalic and atraumatic NOSE: Normal external nose present and Normal nasal mucous membranes and turbinates present EXTERNAL EAR: Yes external ears normal EXTERNAL AUDITORY CANAL: EAC's normal TYMPANIC MEMBRANE: TM's normal bilaterally Neck/C-Spine: COMMON NORMALS: full ROM, no lymphadenopathy, supple, no meningeal signs, no JVD, Thyroid normal and No carotid bruits THYROID: Thyroid normal Chest: COMMONS NORMALS: normal inspection of the chest, normal palpation of entire chest wall, normal inspection of the breasts and normal palpation of the breasts Breast/axilla inspection: Yes normal inspection of the breasts BREAST/AXILLA PALPATION: Yes normal palpation of the breasts Resp: COMMON NORMALS: normal respiratory effort, No retractions, No use of accessory muscles, clear to auscultation bilaterally and percussion normal AUSCULTATION: clear to auscultation bilaterally PERCUSSION: percussion normal Cardio: COMMON NORMALS: no JVD, regular rate, regular rhythm, S1 normal heart sound present, S2 normal heart sound present, No gallops present (Cardio), No clicks present (Cardio), No murmurs present (Cardio), No rub (Cardio) and Peripheral pulses 2+ throughout RATE: regular rate RHYTHM: regular rhythm HEART SOUNDS: S1 normal heart sound present and S2 normal heart sound present PERIPHERAL PULSES: Peripheral pulses 2+ throughout GI: COMMON NORMALS: Normal to inspection, nondistended, normoactive bowel sounds present, Soft to palpation, non-tender, No hepatosplenomegaly present, no masses and no bruits PALPATION: Yes Soft to palpation and Yes No hepatosplenomegaly present : COMMON NORMALS: Yes no CVA tenderness BLADDER/KIDNEY EXAM: Yes no CVA tenderness Back/Pelvis: COMMON NORMALS: no CVA tenderness, thoracic and lumbar spine normal to inspection, no thoracic nor lumbar tenderness, thoraco-lumbar ROM normal and straight leg raise negative bilaterally Extremity: COMMON NORMALS: normal to inspection, full ROM, capillary refill normal, no joint enlargement, no clubbing, cyanosis or edema, no calf tenderness and no pedal edema Neuro: COMMON NORMALS: patient oriented x3 SENSORIUM/ORIENTATION: Yes alert MENINGEAL SIGNS: Yes no meningeal signs Course Consultations: Consultation #1: Care transferred to Dr. Dickey for shift change Vital Signs: Vital signs: Vital Signs Temperature 97.8 F 10/18/20 15:19 Pulse Rate 58 L 10/18/20 20:04 Respiratory Rate 23 H 10/18/20 20:04 Blood Pressure 143/89 10/18/20 20:04 Pulse Oximetry 97 10/18/20 20:04 MDM - Chest Pain Lab Data: Labs: Lab Results 10/18/20 10/18/20 10/18/20 Range/Units 15:50 15:50 15:50 WBC 5.6 (4.0-10.0) 10^3/ uL RBC 4.68 (4.1-5.3) 10^6/u L Hgb 13.9 (11.7-16.6) g/dL Hct 43.0 (42.0-52.0) % MCV 91.9 (80-94) fL MCH 29.7 (28.0-34.0) pg MCHC 32.3 (30.0-36.0) g/dL RDW 13.2 (12.1-15.1) % Plt Count 224 (130-400) 10^3/c mm MPV 10.2 (7.4-10.4) fL Neut % (Auto) 59.2 % Lymph % (Auto) 20.3 % Teller % (Auto) 10.6 % Eos % (Auto) 8.6 % Baso % (Auto) 1.1 % Neut # (Auto) 3.31 (1.8-7.7) 10^3/u L Lymph # (Auto) 1.1 (0.8-4.8) 10^3/u L Teller # (Auto) 0.6 (0.2-0.9) 10^3/u L Eos # (Auto) 0.5 (0.0-0.8) 10^3/u L Baso # (Auto) 0.1 (0.0-0.1) 10^3/u L Nucleated RBC % (a uto) 0 % Nucleated RBCs # 0.0 /100WBC PT 13.70 (12.1-14.9) SECO NDS INR 1.02 (0.8-1.2) APTT 27.3 (23.9-36.7) SECO NDS D-Dimer 0.48 (0-0.59) ug/mIFE U Sodium 144 (136-145) mmol/L Potassium 4.2 (3.5-5.1) mmol/L Chloride 107 (98-107) mmol/L Carbon Dioxide 25 (22-29) mmol/L Anion Gap 16.2 (5-19) BUN 8 (8-23) mg/dL Creatinine 0.7 (0.7-1.2) mg/dL GFR Calculation Not Reportable Glucose 96 (65-115) mg/dL Calculated Osmolal ity 296 H (285-295) mOsm/k g Calcium 9.1 (8.5-10.5) mg/dL Total Bilirubin 0.2 (0.15-1.2) mg/dL AST 17 (0-40) U/L ALT 9 (0-41) U/L Alkaline Phosphata se 107 (40-130) IU/L Troponin T Baselin e (0-15) ng/L Troponin T 120 Min [place] (0-15) ng/L Delta Troponin T (0-10) ABS# NT-Pro-B Natriuret Pep 253 H (0-125) pg/mL Total Protein 6.3 L (6.6-8.7) g/dL Albumin 4.0 (3.5-5.2) g/dL Globulin 2.3 (1.3-4.6) g/dL 10/18/20 10/18/20 Range/Units 15:50 18:07 WBC (4.0-10.0) 10^3/ uL RBC (4.1-5.3) 10^6/u L Hgb (11.7-16.6) g/dL Hct (42.0-52.0) % MCV (80-94) fL MCH (28.0-34.0) pg MCHC (30.0-36.0) g/dL RDW (12.1-15.1) % Plt Count (130-400) 10^3/c mm MPV (7.4-10.4) fL Neut % (Auto) % Lymph % (Auto) % Teller % (Auto) % Eos % (Auto) % Baso % (Auto) % Neut # (Auto) (1.8-7.7) 10^3/u L Lymph # (Auto) (0.8-4.8) 10^3/u L Teller # (Auto) (0.2-0.9) 10^3/u L Eos # (Auto) (0.0-0.8) 10^3/u L Baso # (Auto) (0.0-0.1) 10^3/u L Nucleated RBC % (a uto) % Nucleated RBCs # /100WBC PT (12.1-14.9) SECO NDS INR (0.8-1.2) APTT (23.9-36.7) SECO NDS D-Dimer (0-0.59) ug/mIFE U Sodium (136-145) mmol/L Potassium (3.5-5.1) mmol/L Chloride (98-107) mmol/L Carbon Dioxide (22-29) mmol/L Anion Gap (5-19) BUN (8-23) mg/dL Creatinine (0.7-1.2) mg/dL GFR Calculation Glucose (65-115) mg/dL Calculated Osmolal ity (285-295) mOsm/k g Calcium (8.5-10.5) mg/dL Total Bilirubin (0.15-1.2) mg/dL AST (0-40) U/L ALT (0-41) U/L Alkaline Phosphata se (40-130) IU/L Troponin T Baselin e 12 (0-15) ng/L Troponin T 120 Min [place] 11.08 (0-15) ng/L Delta Troponin T -0.92 L (0-10) ABS# NT-Pro-B Natriuret Pep (0-125) pg/mL Total Protein (6.6-8.7) g/dL Albumin (3.5-5.2) g/dL Globulin (1.3-4.6) g/dL Imaging Data^: CXR: Attestation: I personally reviewed and interpreted this imaging study as juancho gifford: My impression: Normal x-ray EKG Data^: EKG 1: Attestation: I personally reviewed and interpreted this EKG as follows: EKG interpretation date: 10/18/20 EKG interpretation time: 15:34 Prior EKG tracings: not available for review Interpretation: Normal sinus rhythm heart rate 67 normal EKG EKG 2: Attestation: I personally reviewed and interpreted this EKG as follows: EKG interpretation date: 10/18/20 EKG interpretation time: 17:32 Prior EKG tracings: not available for review Interpretation: Sinus bradycardia with occasional PVC heart rate 57. Discharge Plan Discharge Patient Disposition: Home Clinical Impression: Chest pain Qualifiers: Chest pain type: unspecified Qualified Code(s): R07.9 - Chest pain, unspecified Condition: Stable Prescriptions: No Action amlodipine-benazepril 5-20 mg capsule 1 cap PO BID 90 Days Qty: 180 RF: 0 naproxen 500 mg tablet 500 mg PO BID PRN (Reason: pain) 90 Days Qty: 180 RF: 0 albuterol sulfate 90 mcg/actuation HFA aerosol inhaler 1 inh INHALATION QID PRN (Reason: shortness of breath or wheezing) Qty: 18 RF: 0 multivitamin Tablet 1 tab PO DAILY RF: 0 bile scwzx-osoh-ichg-phenolpth Tablet 1 tab PO DAILY RF: 0 Nexium 20 mg Capsule,Delayed Release(Dr/Ec) 20 mg PO DAILY RF: 0 Vitamin B-12 25 mcg Tablet 50 mcg PO DAILY RF: 0 hydrocodone-acetaminophen 5-325 mg tablet 1 - 2 tab PO Q4H PRN (Reason: Pain) RF: 0 tamsulosin 0.4 mg capsule 0.4 mg PO BID RF: 0 Breo Ellipta 200-25 mcg/dose blister with device 1 inh INHALATION DAILY RF: 0 Discharge Orders: Discharge ED (Routine); Ordered 10/18/20 Ordered By: Vicente Dickey Referrals: Zoraida Monterroso FNP [Primary Care Provider] - 4-7 days Patient Instructions: Chest Pain (ED) Activity Restrictions/Additional Instructions: Return for worsening episodes of chest pain, shortness of breath, fever greater than 100, other concerning symptoms. Coding Level of Care Code ED Director Of Labor Relations for Chg Fwd Exam Comprehensive Documented by User: Vicente Dickey DO 10/19/20 05:35 HPI - Chest Pain General: Chief Complaint: Chest Pain Stated Complaint: DIFF BREATHING/DUE FOR STRESS TEST 10.21.20 Time Seen by Provider: 10/18/20 15:26 [facility] ED PFSH: Medical History (Updated 10/18/20 @ 19:37 by Vicente Dickey DO) Abdominal pain BPH loc w urin obs/LUTS Elevated PSA Erectile dysfunction Progressive, worsening, failed overdosing Viagra, vacuum device. Self injection training conducted June 2019 History of kidney stones Ureteral calculus Surgical History H/O vasectomy Family History Father , at age 47 Hodgkins disease Mother , at age 53 Leukemia Social History Smoking and tobacco status: never smoked Alcohol intake: current Alcohol intake frequency: 0-2 Drinks per Day Marital status: Current occupational status: employed History of recent travel: No Current gender identity: Male Course Vital Signs: Vital signs: Vital Signs Temperature 97.8 F 10/18/20 15:19 Pulse Rate 58 L 10/18/20 20:04 Respiratory Rate 23 H 10/18/20 20:04 Blood Pressure 143/89 10/18/20 20:04 Pulse Oximetry 97 10/18/20 20:04 MDM - Chest Pain MDM Narrative: Medical decision making narrative: 75-year-old gentleman checked out to me by Dr. Rivera at shift change. This gentleman has been having episodes of shortness of breath and chest discomfort. He has a stress test scheduled on Monday, but decided to come in due to increased symptoms. He is not experiencing any discomfort currently. He states that he does wear out with activity and gets quite short of breath. His EKG did not show any acute ST changes. His troponin remained negative without a significant delta at 2 hours. He was counseled on this. He was encouraged to follow-up with his outpatient stress test on Monday. Lab Data: Labs: Lab Results 10/18/20 10/18/20 10/18/20 Range/Units 15:50 15:50 15:50 WBC 5.6 (4.0-10.0) 10^3/ uL RBC 4.68 (4.1-5.3) 10^6/u L Hgb 13.9 (11.7-16.6) g/dL Hct 43.0 (42.0-52.0) % MCV 91.9 (80-94) fL MCH 29.7 (28.0-34.0) pg MCHC 32.3 (30.0-36.0) g/dL RDW 13.2 (12.1-15.1) % Plt Count 224 (130-400) 10^3/c mm MPV 10.2 (7.4-10.4) fL Neut % (Auto) 59.2 % Lymph % (Auto) 20.3 % Teller % (Auto) 10.6 % Eos % (Auto) 8.6 % Baso % (Auto) 1.1 % Neut # (Auto) 3.31 (1.8-7.7) 10^3/u L Lymph # (Auto) 1.1 (0.8-4.8) 10^3/u L Teller # (Auto) 0.6 (0.2-0.9) 10^3/u L Eos # (Auto) 0.5 (0.0-0.8) 10^3/u L Baso # (Auto) 0.1 (0.0-0.1) 10^3/u L Nucleated RBC % (a uto) 0 % Nucleated RBCs # 0.0 /100WBC PT 13.70 (12.1-14.9) SECO NDS INR 1.02 (0.8-1.2) APTT 27.3 (23.9-36.7) SECO NDS D-Dimer 0.48 (0-0.59) ug/mIFE U Sodium 144 (136-145) mmol/L Potassium 4.2 (3.5-5.1) mmol/L Chloride 107 (98-107) mmol/L Carbon Dioxide 25 (22-29) mmol/L Anion Gap 16.2 (5-19) BUN 8 (8-23) mg/dL Creatinine 0.7 (0.7-1.2) mg/dL GFR Calculation Not Reportable Glucose 96 (65-115) mg/dL Calculated Osmolal ity 296 H (285-295) mOsm/k g Calcium 9.1 (8.5-10.5) mg/dL Total Bilirubin 0.2 (0.15-1.2) mg/dL AST 17 (0-40) U/L ALT 9 (0-41) U/L Alkaline Phosphata se 107 (40-130) IU/L Troponin T Baselin e (0-15) ng/L Troponin T 120 Min [place] (0-15) ng/L Delta Troponin T (0-10) ABS# NT-Pro-B Natriuret Pep 253 H (0-125) pg/mL Total Protein 6.3 L (6.6-8.7) g/dL Albumin 4.0 (3.5-5.2) g/dL Globulin 2.3 (1.3-4.6) g/dL 10/18/20 10/18/20 Range/Units 15:50 18:07 WBC (4.0-10.0) 10^3/ uL RBC (4.1-5.3) 10^6/u L Hgb (11.7-16.6) g/dL Hct (42.0-52.0) % MCV (80-94) fL MCH (28.0-34.0) pg MCHC (30.0-36.0) g/dL RDW (12.1-15.1) % Plt Count (130-400) 10^3/c mm MPV (7.4-10.4) fL Neut % (Auto) % Lymph % (Auto) % Teller % (Auto) % Eos % (Auto) % Baso % (Auto) % Neut # (Auto) (1.8-7.7) 10^3/u L Lymph # (Auto) (0.8-4.8) 10^3/u L Teller # (Auto) (0.2-0.9) 10^3/u L Eos # (Auto) (0.0-0.8) 10^3/u L Baso # (Auto) (0.0-0.1) 10^3/u L Nucleated RBC % (a uto) % Nucleated RBCs # /100WBC PT (12.1-14.9) SECO NDS INR (0.8-1.2) APTT (23.9-36.7) SECO NDS D-Dimer (0-0.59) ug/mIFE U Sodium (136-145) mmol/L Potassium (3.5-5.1) mmol/L Chloride (98-107) mmol/L Carbon Dioxide (22-29) mmol/L Anion Gap (5-19) BUN (8-23) mg/dL Creatinine (0.7-1.2) mg/dL GFR Calculation Glucose (65-115) mg/dL Calculated Osmolal ity (285-295) mOsm/k g Calcium (8.5-10.5) mg/dL Total Bilirubin (0.15-1.2) mg/dL AST (0-40) U/L ALT (0-41) U/L Alkaline Phosphata se (40-130) IU/L Troponin T Baselin e 12 (0-15) ng/L Troponin T 120 Min [place] 11.08 (0-15) ng/L Delta Troponin T -0.92 L (0-10) ABS# NT-Pro-B Natriuret Pep (0-125) pg/mL Total Protein (6.6-8.7) g/dL Albumin (3.5-5.2) g/dL Globulin (1.3-4.6) g/dL Discharge Plan Discharge Patient Disposition: Home Clinical Impression: Chest pain Qualifiers: Chest pain type: unspecified Qualified Code(s): R07.9 - Chest pain, unspecified Condition: Stable Prescriptions: No Action amlodipine-benazepril 5-20 mg capsule 1 cap PO BID 90 Days Qty: 180 RF: 0 naproxen 500 mg tablet 500 mg PO BID PRN (Reason: pain) 90 Days Qty: 180 RF: 0 albuterol sulfate 90 mcg/actuation HFA aerosol inhaler 1 inh INHALATION QID PRN (Reason: shortness of breath or wheezing) Qty: 18 RF: 0 multivitamin Tablet 1 tab PO DAILY RF: 0 bile isbsf-ajbj-iawc-phenolpth Tablet 1 tab PO DAILY RF: 0 Nexium 20 mg Capsule,Delayed Release(Dr/Ec) 20 mg PO DAILY RF: 0 Vitamin B-12 25 mcg Tablet 50 mcg PO DAILY RF: 0 hydrocodone-acetaminophen 5-325 mg tablet 1 - 2 tab PO Q4H PRN (Reason: Pain) RF: 0 tamsulosin 0.4 mg capsule 0.4 mg PO BID RF: 0 Breo Ellipta 200-25 mcg/dose blister with device 1 inh INHALATION DAILY RF: 0 Discharge Orders: Discharge ED (Routine); Ordered 10/18/20 Ordered By: Vicente Dickey Referrals: Zoraida Monterroso FNP [Primary Care Provider] - 4-7 days Patient Instructions: Chest Pain (ED) Activity Restrictions/Additional Instructions: Return for worsening episodes of chest pain, shortness of breath, fever greater than 100, other concerning symptoms. Coding Level of Care Code ED Director Of Labor Relations for Chg Fwd Exam Comprehensive
[2020-10-18 15:53] VITALS: BP 144/86; PULSE 61; RESP 18; O2SAT 98
[2020-10-18 15:59] LABS: Basophils # 0.1 10^3/uL (0.0-0.1); Basophils % 1.1 %; Eosinophils # 0.5 10^3/uL (0.0-0.8); Eosinophils % 8.6 %; Hemoglobin 13.9 g/dL (11.7-16.6); Lymphocytes # 1.1 10^3/uL (0.8-4.8); Lymphocytes % 20.3 %; Mean Corpuscular HGB Conc 32.3 g/dL (30.0-36.0); Mean Corpuscular Hemoglobin 29.7 pg (28.0-34.0); Mean Corpuscular Volume 91.9 fL (80-94); Mean Platelet Volume 10.2 fL (7.4-10.4); Monocytes # 0.6 10^3/uL (0.2-0.9); Monocytes % 10.6 %; Neutrophils # 3.31 10^3/uL (1.8-7.7); Neutrophils % 59.2 %; Nucleated Red Blood Cells % 0 %; Platelet Count 224 10^3/cmm (130-400); Red Blood Count 4.68 10^6/uL (4.1-5.3); Red Cell Distribution Width 13.2 % (12.1-15.1); White Blood Count 5.6 10^3/uL (4.0-10.0)
[2020-10-18 16:16] LABS: INR 1.02 (0.8-1.2)
[2020-10-18 16:17] LABS: Partial Thromboplastin Time 27.3 SECONDS (23.9-36.7)
[2020-10-18 16:19] LABS: D Dimer 0.48 ug/mIFEU (0-0.59)
[2020-10-18 16:23] LABS: Troponin(5th) Baseline 12 ng/L (0-15)
[2020-10-18 16:36] LABS: Alanine Aminotransferase 9 U/L (0-41); Alkaline Phosphatase 107 IU/L (40-130); Anion Gap 16.2 (5-19); Aspartate Amino Transferase 17 U/L (0-40); Blood Urea Nitrogen 8 mg/dL (8-23); Calcium 9.1 mg/dL (8.5-10.5); Carbon Dioxide 25 mmol/L (22-29); Chloride 107 mmol/L (98-107); Globulin 2.3 g/dL (1.3-4.6); Glucose 96 mg/dL (65-115); NT Pro B Type Natriuretic Pept 253 pg/mL (0-125); Osmolality Calculated 296 mOsm/kg (285-295); Potassium 4.2 mmol/L (3.5-5.1); Sodium 144 mmol/L (136-145); Total Bilirubin 0.2 mg/dL (0.15-1.2); Total Protein 6.3 g/dL (6.6-8.7)
[2020-10-18 17:00] VITALS: BP 156/82; PULSE 67; RESP 14; O2SAT 98
--- NOTE | 2020-10-18 17:27 | ECG_ITS ---
[facility] Test Date: 2020-10-18 Pat Name: Don Clay Department: Room: Gender: Male Burn Nurse: : 1945 Requested By: Domenico Rivera Order Number: [id number] Janine MD: Omar Denny M.D. Measurements Intervals [place] Rate: 57 P: 81 ME: 162 QRS: 48 QRSD: 94 T: 68 QT: 409 QTc: 401 Interpretive Statements SINUS BRADYCARDIA WITH OCCASIONAL VENTRICULAR PREMATURE COMPLEXES Compared to ECG 10/18/2020 15:34:15 Ventricular premature complex(es) now present Sinus rhythm no longer present Electronically Signed On 10-21-2020 0:32:38 CDT by Omar Denny M.D. [id number]
[2020-10-18 18:00] VITALS: BP 141/86; PULSE 63; RESP 19; O2SAT 98
[2020-10-18 18:54] LABS: Troponin 5 2HR 11.08 ng/L (0-15)
[2020-10-18 18:56] LABS: Troponin 5 2HR Delta -0.92 ABS# (0-10)
[2020-10-18 20:04] VITALS: BP 143/89; PULSE 58; RESP 23; O2SAT 97
--- NOTE | 2020-10-20 14:14 | PC.SOCIAL ---
Addendum entered by Pinky Young RN 10/20/20 14:27: Patient was confused about the appt with Cardiology he was reminded that his appt with Cardiology is November 05 at 2:15 and he was asked to write this down. Explained to keep this appt in case the stress test comes back positive he will need to be seen. the stress test should be scheduled prior to this time and we will have results go to Zoraida Monterroso FIRE RANGER. Called [facility] and updated Dora to add to the information that results should go to Zoraida Monterroso pt pcp. Dr Garcia will have access to view if needed in the system as well. Original Note: Patient called to follow up on stress test that he was told would be scheduled on 10/21/2020. Care Coordination did not get a referral for this test. Reviewed notes and order written and signed by Dr Floyd. Faxed to [facility]. Will require prior auth. Verified with [facility] that they did receive the order. Called patient and provided update.
--- NOTE | 2020-11-04 14:14 | DCPLANNER ---
Patient had an outpatient stress test scheduled for 11.04.21 - patient did attend appointment.
== END 2020-10-18 20:04 | disposition home or self-care (01) ==
PROVIDERS: Emergency Medicine; Emergency Provider Emergency Medicine; PCP Nurse Practitioner Family
DX: R07.9 Chest pain, unspecified (principal)
CPT/HCPCS: 36415; 71045; 80053; 83880; 84484; 85025; 85378; 85610; 85730; 93005; 99284

== ENCOUNTER 2020-11-04 09:23 | Outpatient (CLI) | payer MEDICARE, SELFPAY ==
--- NOTE | 2020-11-04 09:48 | ECG_ITS ---
[facility] Test Date: 2020-11-04 Pat Name: Don Clay Department: Room: Gender: Male Campus Rep: : 1945 Requested By: Vicente Orozco Order Number: [id number] Janine MD: Malini Russell M.D. Interpretive Statements NAME OF STUDY: LEXISCAN SESTAMIBI STRESS TEST INDICATION: Chest Pain PROCEDURE: At the baseline, the blood pressure was 127/78 mmHg with a heart rate of 59 bpm. The electrocardiogram showed normal sinus rhythm, normal axis with nonspecific ST-T wave changes. Baseline artifact. The Lexiscan was infused over a period of 20 seconds. A total of 0.4 milligrams of Lexiscan was infused. The stress phase was continued for a total of 5 minutes. Heart rate at the end of the stress phase was 78 bpm with a blood pressure of 143/75 mmHg. The EKG at the peak infusion revealed no significant ST-T wave changes. Isolated PVC noted. The study was terminated due to protocol completion. Sestamibi was injected 20 seconds after the Lexiscan infusion. Blood pressure at the end of the recovery phase was 123/69 mmHg with a heart rate of 85 beats per minute. CONCLUSION: 1. No significant EKG changes with the LexiScan infusion. 2. No LexiScan induced chest pain or cardiac arrhythmia. 3. Normal blood pressure and heart rate response. 4. Sestamibi/sestamibi perfusion scan pending; see separate report. Electronically Signed On 11-04-2020 18:30:35 CDT by Malini Russell M.D. [id number]
--- NOTE | 2020-11-04 09:48 | NMCV_ITS ---
NM jenaro perf SPECT r/s* [id number] Don Clay Age: 75 Gender: M : 1945 Exam Date: 11/04/2020 11:50 Ordering Phys: Vicente Dickey DO Technologist: CATARINA Otero Exam Location: [facility] Indications: CHEST PAIN STRESS TEST [facility] IMAGE PROTOCOL Rest/Stress 1 Lexiscan Day Radiopharmaceutical Dose (mCi) Administration Site Administered by Rest: Tc-99m 10.6 IV CATARINA Corcoran Sestamibi Stress:Tc-99m 32.2 IV CATARINA Corcoran Sestamibi Rest: 04-Nov-2020 60 Discovery 630 Stress: 04-Nov-2020 30 Discovery 630 0.4mg Lexiscan. Images obtained in supine and prone position. SPECT RESULTS Technical Quality: Excellent Raw Data Analysis: Normal Image Corrections: No attenuation or motion correction applied Summed Stress Score: 5 Summed Rest Score: 9 Summed Difference Score: 0 PERFUSION FINDINGS Medium size perfusion abnormality of moderate severity of mid to apical inferior, mid inferolateral, apical lateral and apical green on rest images with somewhat improved tracer uptake in inferior wall on stress images. Prone imaging with homogeneous tracer uptake in inferior green. FUNCTIONAL RESULTS (calculated via Gated SPECT) Stress Image LV EF (%): 64 Stress EDV (mL):102 TID: 1.07 Stress ESV (mL):37 FUNCTIONAL FINDINGS: The left ventricle is normal in size. Transient Ischemia Dilatation of 1.1. There is normal left ventricular systolic function. The left ventricular ejection fraction is normal with a value of 64%. There is normal left ventricular wall thickening with no regional wall motion abnormality. Normal end-diastolic end-systolic volumes. IMPRESSIONS 1. Small sized paradoxical perfusion abnormality of moderate severity of mid to apical inferior green. This likely represents attenuation artifact. 2. Small size fixed perfusion abnormality of mid inferolateral and apical lateral green. This may represent attenuation artifact or old myocardial infarction in circumflex artery territory. 3. Overall left ventricular systolic function is normal without regional wall motion abnormalities. LVEF=64%. 4. No coronary ischemia based on the study. Malini Russell MD (Electronically Signed) Final Date: 04 November 2020 18:35 S
[2020-11-04 10:12] VITALS: BMI 20.7
[2020-11-04] MEDS: regadenoson 0.4 Mg/5 ml Syringe IVP (12:38)
[2020-11-04] MEDS: ondansetron 2 mg/ML SDV 2 mL 4 MG IVP (12:38)
[2020-11-04 12:40] VITALS: BP 123/69; PULSE 82
== END 2020-11-04 09:24 | disposition home or self-care (01) ==
LOC: RAD 09:27 → CDL 09:51
PROVIDERS: PCP Nurse Practitioner Family; Visit Provider Emergency Medicine
DX: R07.9 Chest pain, unspecified (principal)
CPT/HCPCS: 78452; 93017; A9500; J2405; J2785

== ENCOUNTER → 2020-11-05 15:36 | Outpatient (BNVA) | payer MEDICARE, SELFPAY | PROVIDERS: PCP Nurse Practitioner Family; Visit Provider Internal Medicine Cardiovascular Disease | DX: I10 Essential (primary) hypertension (principal); R06.02 Shortness of breath; R07.9 Chest pain, unspecified; R55 Syncope and collapse | CPT/HCPCS: 83880 ==